=== PATIENT | female | born 2000 | race Caucasian/White ===

== ENCOUNTER 2020-10-14 17:39 | Emergency (ER) | payer BC ==
[2020-10-14] MEDS ORDERED: Sodium Chloride 0.9% 1000 ML 1,000 ML IV STA (17:54)
[2020-10-14] MEDS ORDERED: Sodium Chloride 0.9% 1000 ML 1,000 ML ONE ×2 (17:58→21:21)
[2020-10-14 18:23] LABS: Absolute Neutrophil Ct (ANC) 1.73 (1.4-6.9); BASOPHIL % 0.6 % (0.0-0.4); Basophil (Absolute #) 0.02 (0-0.4); Eosinophil (Absolute #) 0 (0-0.5); Hematocrit 23.4 % (35-47); Lymphocyte (Absolute #) 1.24 (1.0-4.6); Lymphocytes % 35.3 % (24.0-44.0); Mean Cell Volume 66.1 fl (78-100); Mean Corpuscular Hemoglobin 16.4 pg (26-32); Mean Corpuscular Hgb Concent. 24.8 g/dl (32-36); Mean Platelet Volume 9.3 fl (7.5-11.0); Monocyte (Absolute #) 0.52 (0.0-1.3); Monocytes % 14.8 % (0.0-12.0); Neutrophil % 49.3 % (36.0-66.0); Platelet Count 153 K/mm3 (150-450); Red Blood Count 3.54 M/mm3 (4.1-5.4); Red Cell Distribution Width 19.7 % (11.5-14.0); White Blood Count 3.5 K/mm3 (4.0-10.5)
[2020-10-14 18:38] LABS: Hemoglobin 5.8 gm/dl (12.0-16.0)
[2020-10-14 18:40] LABS: ALBUMIN 4.6 g/dL (3.5-5.0); ALKALINE PHOSPHATASE 57 U/L (38-126); ANION GAP 13.5 MEQ/L (5-15); BLOOD UREA NITROGEN 7 mg/dL (7-17); CHLORIDE 101 mmol/L (98-107); Calcium 9.1 mg/dL (8.4-10.2); Carbon Dioxide 25 mmol/L (22-30); Creatinine 1 0.36 mg/dL (0.52-1.04); EST GLOMERULAR FILTRATION RATE > 60.0 ML/MIN; Glucose 87 mg/dL (74-106); Potassium 3.4 mmol/L (3.5-5.1); SGOT/AST 23 U/L (14-36); SGPT/ALT 12 U/L (0-35); SODIUM 136 mmol/L (137-145); Total Protein 7.3 g/dL (6.3-8.2)
[2020-10-14 19:05] LABS: ABO TYPING A; Antibody Screen NEGATIVE (NEGATIVE); RH TYPING POSITIVE
[2020-10-14 19:10] LABS: Appearance CLOUDY (CLEAR); Bacteria RARE /HPF (NEGATIVE); Bilirubin NEGATIVE (NEGATIVE); Blood NEGATIVE Ery/ul (0-5); Glucose NEGATIVE (NEGATIVE); Ketones TRACE (NEGATIVE); Leukocyte Esterase MODERATE (NEGATIVE); Mucus MANY /HPF (NEGATIVE); Nitrite POSITIVE (NEGATIVE); Protein,Urine Dip 100 (Negative); Specific Gravity 1.025 (1.005-1.025); Urobilinogen 4 mg/dL (0-1); WBC >100 /HPF (0-5)
[2020-10-14 19:14] VITALS: O2SAT 98
[2020-10-14 19:28] LABS: Iron 21 ug/dL (37-170); Iron Saturation 5 % (20-39); TIBC 445 ug/dL (265-462)
--- NOTE | 2020-10-14 19:59 | ERPHSYRPT ---
- History of Present Illness Time Seen by Provider: 10/14/20 17:55 Source: patient Exam Limitations: no limitations Patient Subjective Stated Complaint: Abnormal labs Triage Nursing Assessment: Patient ambulated back to ED and transferred self to bed. Patient A+O X 3. Patient's skin pale, warm and dry. Patient states today she got routine blood work done and received a call to come to ED due to abnormal labs. [facility] [employer]IST Judson Martines called ER and stated patient's hemaglobin was 5.5 and needed to be further evaluated. Patient denies pain or discomfort. Lungs clear a/p reggie. Slight swelling noted to BLE. Patient received [employer] COVID vaccine yesterday. Patient does state she has been having heavier menstural cycles. Physician History: Patient is a 20-year-old female presents to our ED as a referral from her primary care doctor for evaluation of profound anemia. Patient has a hemoglobin of 5.3. Patient otherwise asymptomatic. She complains of no chest pain. No fatigue. No nausea or vomiting no diarrhea. No rash. Symptoms are minimal at this time. Patient states she received a Covid vaccination in the past week. No nausea or vomiting no diaphoresis no lightheadedness. Timing/Duration: today Severity: mild Modifying Factors: Improves With: nothing Associated Symptoms: denies symptoms Allergies/Adverse Reactions: No Known Drug Allergies Allergy (Unverified 10/14/20 17:47) Home Medications: No Reportable Medications [No Reported Medications] 10/14/20 [History] Hx Influenza Vaccination/Date Given: Yes Hx Pneumococcal Vaccination/Date Given: No Immunizations Up to Date: Yes Travel Risk - International Travel Have you traveled outside of the country in past 3 weeks: No - Coronavirus Screening Are you exhibiting any of the following symptoms?: No Close contact with a COVID-19 positive Pt in past 14-21 Days: No - Vaccine Status Have you recieved a Covid-19 vaccination: Yes [employer]: [employer] - Review of Systems Constitutional: No Symptoms, No Fever, No Chills Eyes: No Symptoms Ears, Nose, & Throat: No Symptoms Respiratory: No Symptoms, No Cough, No Dyspnea Cardiac: No Symptoms, No Chest Pain, No Edema, No Syncope Abdominal/Gastrointestinal: No Symptoms, No Abdominal Pain, No Nausea, No Vomiting, No Diarrhea Genitourinary Symptoms: No Symptoms, No Dysuria Musculoskeletal: No Symptoms, No Back Pain, No Neck Pain Skin: No Symptoms, No Rash Neurological: No Symptoms, No Dizziness, No Focal Weakness, No Sensory Changes Psychological: No Symptoms Endocrine: No Symptoms Hematologic/Lymphatic: No Symptoms Immunological/Allergic: No Symptoms All Other Systems: Reviewed and Negative - Past Medical History Pertinent Past Medical History: No Neurological History: No Pertinent History ENT History: No Pertinent History Cardiac History: No Pertinent History Respiratory History: No Pertinent History Endocrine Medical History: No Pertinent History Musculoskeletal History: No Pertinent History GI Medical History: No Pertinent History History: No Pertinent History Psycho-Social History: No Pertinent History Female Reproductive Disorders: No Pertinent History - Past Surgical History Past Surgical History: No Neuro Surgical History: No Pertinent History Cardiac: No Pertinent History Respiratory: No Pertinent History Gastrointestinal: No Pertinent History Genitourinary: No Pertinent History Musculoskeletal: No Pertinent History Female Surgical History: No Pertinent History - Social History Smoking Status: Never smoker Exposure to second hand smoke: No Drug Use: none Patient Lives Alone: Yes - Female History Hx Last Menstrual Period: last week Hx Now: No - Nursing Vital Signs Nursing Vital Signs: Initial Vital Signs Temperature 98.5 F 10/14/20 17:49 Pulse Rate 99 H 10/14/20 17:49 Respiratory Rate 18 10/14/20 17:49 Blood Pressure 125/71 10/14/20 17:49 O2 Sat by Pulse Oximetry 98 10/14/20 17:49 Pain Scale Pain Intensity 0 - Physical Exam General Appearance: no apparent distress, alert Eye Exam: PERRL/EOMI, eyes nml inspection Ears, Nose, Throat Exam: normal ENT inspection, TMs normal, pharynx normal, moist mucous membranes Neck Exam: normal inspection, non-tender, supple, full range of motion Respiratory Exam: normal breath sounds, lungs clear, No respiratory distress Cardiovascular Exam: regular rate/rhythm, normal heart sounds, normal peripheral pulses Gastrointestinal/Abdomen Exam: soft, normal bowel sounds, No tenderness, No mass Back Exam: normal inspection, normal range of motion, No CVA tenderness, No vertebral tenderness Extremity Exam: normal inspection, normal range of motion, pelvis stable Neurologic Exam: alert, oriented x 3, cooperative, normal mood/affect, nml cerebellar function, nml station & gait, sensation nml, No motor deficits Skin Exam: normal color, warm, dry, No rash Lymphatic Exam: No adenopathy SpO2 Interpretation: normal SpO2: 98 O2 Delivery: Room Air - Course Nursing assessment & vital signs reviewed: Yes EKG Interpreted by Me: RATE ([id number]), Sinus Rhythm, NORMAL AXIS, NORMAL INTERVALS Ordered Tests: Active Orders 24 hr Category Date Time Status [employer] STAT Care 10/14/20 17:55 Active EKG-ER Only STAT Care 10/14/20 17:54 Active IV Insertion STAT Care 10/14/20 17:54 Active Pulse Oximetry (ED) STAT Care 10/14/20 17:54 Active CBC W DIFF Stat Lab 10/14/20 18:05 Completed CMP Stat Lab 10/14/20 18:05 Completed CULTURE,URINE Stat Lab 10/14/20 17:57 Received Ferritin Stat Lab 10/14/20 Ordered Folate (Folic Acid) Stat Lab 10/14/20 Ordered MAGNESIUM Stat Lab 10/14/20 18:05 Completed UA W/RFX UR CULTURE Stat Lab 10/14/20 17:57 Completed Medication Summary Discontinued Medications Generic Name Dose Route Start Last Admin Trade Name Freq PRN Reason Stop Dose Admin Sodium Chloride 1,000 mls @ 999 mls/hr 10/14/20 17:54 10/14/20 19:06 Sodium Chloride 0.9% 1000 Ml IV 10/14/20 18:54 Infused .Q1H1M STA Infusion Sodium Chloride Confirm 10/14/20 17:58 Sodium Chloride 0.9% 1000 Ml Administered 10/14/20 17:59 Dose 1,000 mls @ ud .ROUTE .STK-MED ONE Lab/Rad Data: Laboratory Result Diagrams 10/14/20 18:05 10/14/20 18:05 Laboratory Results 10/14/20 10/14/20 10/14/20 Range/Units 18:05 18:05 18:05 WBC (4.0-10.5) K/mm3 RBC (4.1-5.4) M/mm3 Hgb (12.0-16.0) gm/dl Hct (35-47) % MCV (78-100) fl MCH (26-32) pg MCHC (32-36) g/dl RDW (11.5-14.0) % Plt Count (150-450) K/mm3 MPV (7.5-11.0) fl Gran % (36.0-66.0) % Eos # (Auto) (0-0.5) Absolute Lymphs (auto) (1.0-4.6) Absolute Monos (auto) (0.0-1.3) Lymphocytes % (24.0-44.0) % Monocytes % (0.0-12.0) % Eosinophils % (0.00-5.0) % Basophils % (0.0-0.4) % Absolute Granulocytes (1.4-6.9) Basophils # (0-0.4) Sodium (137-145) mmol/L Potassium (3.5-5.1) mmol/L Chloride (98-107) mmol/L Carbon Dioxide (22-30) mmol/L Anion Gap (5-15) MEQ/L BUN (7-17) mg/dL Creatinine (0.52-1.04) mg/dL Estimated GFR ML/MIN Glucose (74-106) mg/dL Calcium (8.4-10.2) mg/dL Magnesium (1.6-2.3) mg/dL Iron 21 L 22 L (37-170) ug/dL TIBC 445 (265-462) ug/dL Iron Saturation 5 L (20-39) % Total Bilirubin (0.2-1.3) mg/dL AST (14-36) U/L ALT (0-35) U/L Alkaline Phosphatase (38-126) U/L Serum Total Protein (6.3-8.2) g/dL Albumin (3.5-5.0) g/dL Urine Color (YELLOW) Urine Appearance (CLEAR) Urine pH (5-6) Ur Specific [place] (1.005-1.025) Urine Protein (Negative) Urine Ketones (NEGATIVE) Urine Blood (0-5) Steven/ul Urine Nitrite (NEGATIVE) Urine Bilirubin (NEGATIVE) Urine Urobilinogen (0-1) mg/dL Ur Leukocyte Esterase (NEGATIVE) Urine WBC (Auto) (0-5) /HPF Urine RBC (Auto) (0-2) /HPF U Hyaline Cast (Auto) (0-2) /LPF U Epithel Cells (Auto) (FEW) /HPF Urine Bacteria (Auto) (NEGATIVE) /HPF Urine Mucus (Auto) (NEGATIVE) /HPF Urine Culture Reflexed (NO) Urine Glucose (NEGATIVE) mg/dL ABO Group A Rh Factor POSITIVE Antibody Screen NEGATIVE (NEGATIVE) 10/14/20 10/14/20 10/14/20 Range/Units 18:05 18:05 17:57 WBC 3.5 L (4.0-10.5) K/mm3 RBC 3.54 L (4.1-5.4) M/mm3 Hgb 5.8 L* (12.0-16.0) gm/dl Hct 23.4 L (35-47) % MCV 66.1 L (78-100) fl MCH 16.4 L (26-32) pg MCHC 24.8 L (32-36) g/dl RDW 19.7 H (11.5-14.0) % Plt Count 153 (150-450) K/mm3 MPV 9.3 (7.5-11.0) fl Gran % 49.3 (36.0-66.0) % Eos # (Auto) 0 (0-0.5) Absolute Lymphs (auto) 1.24 (1.0-4.6) Absolute Monos (auto) 0.52 (0.0-1.3) Lymphocytes % 35.3 (24.0-44.0) % Monocytes % 14.8 H (0.0-12.0) % Eosinophils % 0.0 (0.00-5.0) % Basophils % 0.6 (0.0-0.4) % Absolute Granulocytes 1.73 (1.4-6.9) Basophils # 0.02 (0-0.4) Sodium 136 L (137-145) mmol/L Potassium 3.4 L (3.5-5.1) mmol/L Chloride 101 (98-107) mmol/L Carbon Dioxide 25 (22-30) mmol/L Anion Gap 13.5 (5-15) MEQ/L BUN 7 (7-17) mg/dL Creatinine 0.36 L (0.52-1.04) mg/dL Estimated GFR > 60.0 ML/MIN Glucose 87 (74-106) mg/dL Calcium 9.1 (8.4-10.2) mg/dL Magnesium 2.0 (1.6-2.3) mg/dL Iron (37-170) ug/dL TIBC (265-462) ug/dL Iron Saturation (20-39) % Total Bilirubin 0.80 (0.2-1.3) mg/dL AST 23 (14-36) U/L ALT 12 (0-35) U/L Alkaline Phosphatase 57 (38-126) U/L Serum Total Protein 7.3 (6.3-8.2) g/dL Albumin 4.6 (3.5-5.0) g/dL Urine Color ALBER (YELLOW) Urine Appearance CLOUDY (CLEAR) Urine pH 6.0 (5-6) Ur Specific [place] 1.025 (1.005-1.025) Urine Protein 100 (Negative) Urine Ketones TRACE (NEGATIVE) Urine Blood NEGATIVE (0-5) Steven/ul Urine Nitrite POSITIVE (NEGATIVE) Urine Bilirubin NEGATIVE (NEGATIVE) Urine Urobilinogen 4 (0-1) mg/dL Ur Leukocyte Esterase MODERATE (NEGATIVE) Urine WBC (Auto) >100 (0-5) /HPF Urine RBC (Auto) 6-10 (0-2) /HPF U Hyaline Cast (Auto) 6-10 (0-2) /LPF U Epithel Cells (Auto) NONE (FEW) /HPF Urine Bacteria (Auto) RARE (NEGATIVE) /HPF Urine Mucus (Auto) MANY (NEGATIVE) /HPF Urine Culture Reflexed YES (NO) Urine Glucose NEGATIVE (NEGATIVE) mg/dL ABO Group Rh Factor Antibody Screen (NEGATIVE) - Progress Progress: improved Progress Note: Patient is a 20-year-old female presents to our emergency department as a referral from her primary doctor for evaluation of anemia. Patient's hemoglobin in our ED was 5.8. Patient denies blood loss. She does have heavy menstrual cycles. Patient will require transfusion. Case discussed with Dr. Albarado. He advised transfer as patient will require hematology consultation. Iron studies obtained. We do not have hematology in our hospital. Plan of care discussed with patient and mother. They prefer transfer to [facility] for further evaluation and treatment of this profound anemia. Case discussed with Dr. Stern ED physician at [facility] who accepts transfer. 10/14/20 20:01 Discussed with .: Amanda Will see patient in: office Counseled pt/family regarding: lab results, diagnosis, rad results - Departure Departure Disposition: Transfer Clinical Impression: Profound anemia, Thrombocytopenia, Bone marrow suppression Condition: Stable Critical Care Time: No Referrals: DOCTOR,NO FAMILY [Primary Care Provider] -
[2020-10-14] MEDS ORDERED: ROCEPHIN 1 Gm-D5w 50 ml Bag** 1 G/50 ML IVPB IV ONE ×2 (20:31→20:33)
[2020-10-14 21:06] LABS: CROSS MATCH (PRBC) COMPATIBLE (COMPATIBLE)
[2020-10-14 21:57] VITALS: BP 107/65; PULSE 90
== END 2020-10-14 22:27 | disposition short-term general hospital (02) ==
LOC: ED 17:39
DX: D64.9 Anemia, unspecified (principal); D69.6 Thrombocytopenia, unspecified; D61.1 Drug-induced aplastic anemia
CPT/HCPCS: 36000; 36415; 80053; 81001; 82728; 82746; 83540; 83550; 83735; 84466; 85025; 85045; 86850; 86900; 86901; 86922; 87077; 87086; 87186; 93005; 93041; 94760; 96360; 96365; 99285; P9016; 36430; J0696